=== PATIENT | female | born 1965 | race Caucasian/White ===

== ENCOUNTER 2017-11-19 12:44 | Day surgery (SDC) | payer OTHER ==
[2017-11-19] MEDS ORDERED: PROPOFOL 20 ML (15:24)
== END 2017-11-19 17:30 | disposition home or self-care (01) ==
LOC: GIL 12:44
DX: Z12.11 Encounter for screening for malignant neoplasm of colon (principal); K64.0 First degree hemorrhoids
CPT/HCPCS: 45378; 84703